=== PATIENT | male | born 1965 | race Hispanic/Latino ===

== ENCOUNTER 2017-12-28 09:15 | Outpatient (CLI) | payer MEDICARE ==
--- NOTE | 2017-12-28 14:12 | XRay Report ---
XRAY RIGHT HIP TWO VIEWS: 12/28/17 09:15:00 CLINICAL: Right hip pain. FINDINGS: Obese body habitus with a large panniculus degrading the quality of the examination. Moderately severe osteoarthritis with narrowing of the superolateral joint space, superolateral acetabular eburnation and geode formation. Similar but less severe changes in the left hip. No fracture or dislocation. The pelvic bones are intact. The SI joints are normal. Normal soft tissues. IMPRESSION: Moderately severe osteoarthritis of the right hip and less severe osteoarthritis of the left hip.
== END 2017-12-28 09:16 | disposition home or self-care (01) ==
LOC: SPVIMAG 09:15
PROVIDERS: ATTEND Orthopaedic Surgery
DX: M16.0 Bilateral primary osteoarthritis of hip (principal)